=== PATIENT | female | born 1985 | race Caucasian/White ===

== ENCOUNTER 2021-02-12 07:06 | Emergency (ER) | payer OTHER ==
[2021-02-12 08:05] LABS: BASOPHIL 0.2 % (0-2); EOSINOPHIL 0.6 % (0-5); HGB 12.8 g/dl (12.5-16.0); LYMPHOCYTE 19.8 % (15-48); MCH 27.8 pg (25.0-31.0); MCV 86.8 fL (78.0-100.0); MONOCYTE 8.7 % (0-12); MPV 12.2 fL (6.0-9.5); NEUTROPHIL 70.1 % (41-80); NRBC 0; PLT 118 K/uL (150-400); RBC 4.61 M/uL (4.20-5.40); RDW 14.5 % (11.5-14.0); WBC 5.2 K/uL (4.0-10.5)
[2021-02-12 08:26] LABS: BUN/CREAT RATIO (CALC) 12.1 RATIO; CREATININE 0.66 mg/dL (0.51-0.95); POTASSIUM 3.5 mmol/L (3.5-5.1)
[2021-02-12 09:10] LABS: INFLUENZA A NAA NEGATIVE (NEGATIVE)
[2021-02-12 09:14] LABS: CORONAVIRUS 2019 SARS-COV-2 POSITIVE (NEGATIVE)
[2021-02-12] MEDS ORDERED: DECADRON6 MG PO (10:30)
[2021-02-12] MEDS ORDERED: PROVENTIL HFA6.7 GM INH (10:30)
== END 2021-02-12 11:04 | disposition home or self-care (01) ==
LOC: FER 07:06
PROVIDERS: Emergency Medicine
DX: U07.1 COVID-19 (principal); J12.82 Pneumonia due to coronavirus disease 2019; R93.2 Abnormal findings on diagnostic imaging of liver and biliary tract; H73.892 Other specified disorders of tympanic membrane, left ear; F17.200 Nicotine dependence, unspecified, uncomplicated
CPT/HCPCS: 36415; 71046; 71275; 80048; 85025; 85379; 94640; 94664; Q9967; U0002